=== PATIENT | male | born 1945 | race Two or more races ===

== ENCOUNTER 2019-12-23 08:06 | Day surgery (SDC) | payer MEDICARE, MEDICAID ==
--- NOTE | 2019-12-13 22:54 | Pre-Procedure Note/Attestation ---
Pre-Procedure Note/Attestation Complete Prior to Procedure Planned Procedure: right - Removal of cataract and placement of intraocular lens right eye Procedure Narrative: Removal of cataract and placement of intraocular lens right eye Indications for Procedure Pre-Operative Diagnosis: cataract, combined, right eye Attestation I attest that I discussed the nature of the procedure; its benefits; risks and complications; and alternatives (and the risks and benefits of such alternatives), prior to the procedure, with the patient (or the patient's legal claim service representative). I attest that, if there was a reasonable possibility of needing a blood tr ansfusion, the patient (or the patient's legal claim service representative) was given the [place] Department of [employer] Services standardized written summary, pursuant to the Christopher Cullen Blood Safety Act ([place] Health and Safety Code # 1645, as amended). I attest that I re-evaluated the patient just prior to the surgery and that there has been no change in the patient's H&P, except as documented below: Carson Bailey MD Dec 13, 2019 22:54
[2019-12-14] MEDS: Cyclopentolate 1% Opth Sol 2ml RIGHT EYE SCH ×3 (08:51→09:24)
[2019-12-14] MEDS: Tropicamide 1% Opth 15ml Soln RIGHT EYE SCH ×3 (08:51→09:23)
[2019-12-14] MEDS: Phenylephrine 10% Opth Soln 5ml RIGHT EYE SCH ×3 (08:52→09:24)
[2019-12-14] MEDS: Akten 3.5% 1ml Btl RIGHT EYE SCH ×3 (08:52→09:24)
[2019-12-14] MEDS: Vigamox Opth Soln 3ml RIGHT EYE SCH ×3 (08:52→09:24)
[2019-12-14] MEDS: Tobradex Opth Susp 2.5ml RIGHT EYE SCH ×3 (08:52→09:24)
--- NOTE | 2019-12-14 09:00 | NUR ---
Patient ate 3 burritos with jam with diet coke at [address] Quiñonez, anesthesia, made aware.
[2019-12-14 09:17] VITALS: BP 140/75
[2019-12-14 09:27] LABS: BASOPHILS % (AUTO) 1.7 % (0.0-2.0); EOSINOPHILS % (AUTO) 4.9 % (0.0-3.0); HEMATOCRIT 39.3 % (42.0-52.0); HEMOGLOBIN 13.7 G/DL (14.2-18.0); LYMPHOCYTES % (AUTO) 19.2 % (20.0-45.0); MEAN CORPUSCULAR VOLUME 85 FL (80-99); MONOCYTES % (AUTO) 7.8 % (1.0-10.0); NEUTROPHILS % (AUTO) 66.4 % (45.0-75.0); PLATELET COUNT 311 K/UL (150-450); RED BLOOD COUNT 4.61 M/UL (4.70-6.10); RED CELL DISTRIBUTION WIDTH 11.1 % (11.6-14.8); WHITE BLOOD COUNT 7.3 K/UL (4.8-10.8)
[2019-12-14 09:32] LABS: CALCIUM 9.7 MG/DL (8.5-10.1); CREATININE 1.5 MG/DL (0.55-1.30); POTASSIUM 4.1 MMOL/L (3.5-5.1)
--- NOTE | 2019-12-14 11:36 | NUR ---
surgery was cancelled by dr. tatum because the pt. ate this morning.pt will be rescheduled
--- NOTE | 2019-12-14 12:45 | Pre-op HX & Phy Repo 2 SIG ---
DATE OF ADMISSION: 12/14/2019 PRESURGICAL INTERNAL MEDICINE HISTORY AND PHYSICAL DATE OF EVALUATION: . REASON FOR EVALUATION: The patient is a 74-year-old male, who is going for elective surgery on the right eye. The patient was referred by Dr. Carson Bailey, windscreen fitter. The patient has nuclear sclerotic cataract, right eye. Please see Ophthalmology History and Physical by Dr. Carson Bailey. The patient was evaluated at [facility] outpatient surgery department. History was obtained from the patient and from his brother, Juan. PAST MEDICAL HISTORY: Remarkable for bipolar schizophrenia, type 2 diabetes mellitus. No respiratory problem, asthma, or bronchitis. No history of stroke or seizures. Denies history of myocardial infarction, chest pain, or palpitation. No high blood pressure. Denies history of renal insufficiency. There is a history of prostate cancer and had prostatectomy 10 years ago. No history of anemia. Denies history of GI bleeding or hepatitis. SURGICAL HISTORY: Left ankle fracture, radical prostatectomy for cancer. FAMILY HISTORY: Mother at the age of 84 from congestive heart failure. Father age of 82 from congestive heart failure. ALLERGIES: Not known. PRESENT MEDICATIONS: Include lithium carbonate 300 mg twice a day, Risperdal, metformin twice a day, lorazepam, and gemfibrozil for cholesterol. SOCIAL HISTORY: The patient smoked till 1983. No alcohol. No street drug use. PHYSICAL EXAMINATION: GENERAL: Alert, well-developed and well-nourished male, weight 194 pounds and 6 feet tall, no acute distress. VITAL SIGNS: Blood pressure 140/75, temperature 97.1, pulse 53 and regular, O2 saturation 99% on room air. SKIN: Few scratches on the right laboy. Skin is pale, warm, dry. LYMPHATICS: Lymph nodes not enlarged. HEENT: Head, normocephalic and atraumatic. Ears, clear. Eyes, full description by Dr. Carson Bailey. No dentures. Mouth, Mucous us clear. NECK: No jugular venous distention. Carotids artery +2. Trachea midline. CHEST: No deformity or asymmetry. LUNGS: Clear to auscultation and percussion. No rales or rhonchi. HEART: Sinus bradycardia. No murmur. No S3 or S4. ABDOMEN: Soft. No palpable mass. No rebound. EXTREMITIES: No varicose vein. No edema. GENITOURINARY: Prostatectomy for cancer. No CVA tenderness. NEUROLOGIC: No tremor. No nystagmus. DIAGNOSTIC AND LABORATORY DATA: ECG, sinus bradycardia with first-degree AV block, left axis deviation, right bundle-branch block. Inferior DC, old. The patient did not eat from 5:30 a.m. Laboratory, fast blood sugar 129. Rest of the laboratory pending. IMPRESSION: 1. Nuclear sclerotic cataract, right eye. 2. Atherosclerotic heart disease with sinus bradycardia, left axis deviation, right bundle-branch block, and history of DC old. 3. Diabetes mellitus type 2. 4. History of prostate cancer. PLAN: Cataract extraction, right eye with intraocular lens implant per Dr. Carson Bailey. CONCLUSION: The patient has multiple medical problems include EKG changes, vital signs stable. The patient is a diabetic on metformin, blood sugar controlled. The patient did not eat or drink from 5:30 a.m. evaluated by anesthesiologist. The patient's condition optimized for surgery. Carlos Wynne M.D. DR: SERENA JOB#: [id number] CC:
--- NOTE | 2019-12-20 17:21 | Cardiology Report ---
APPROVED REPORT EKG Measurement Heart [id number] <Conclusion> Sinus bradycardia with 1st degree AV block Left axis deviation Right bundle branch block Inferior infarct, age undetermined Abnormal ECG
[2019-12-23] VITALS (8 sets, daily range): BP systolic 120–142; BP diastolic 60–69
[~2019-12-23] VITALS: Ht 182.9 cm; Wt 89.8 kg
[~2019-12-23 08:06] MED LIST: Acetylcholine Injection (OR) ONE; Akten 3.5% 1ml Btl ONE; BSS 15ml BTL ONE; BSS 500ml btl ONE; Bupivacaine 0.75% 30ml vial INJ ONE; Cyclopentolate 1% Opth Sol 2ml ONE; EPINEPHrine 1mg/1ml Amp ONE; Fluorescein Strips ONE; GEMFIBROZIL600 MG ORAL; LITHIUM CARBON300 MG ORAL; Lidocaine 1% MPF 10mg/ml 5ml ONE; Lidocaine 2% MPF 5ml Vial INJ ONE; Lidocaine 4% Amp 5ml ONE; METFORMIN HCL500 M1 ORAL; Maxitrol Opth Oint 3.5gm ONE; Phenylephrine 10% Opth Soln 5ml ONE; Povidone-Iodine 5% opth solution ONE; Sodium Hyaluronate 10 mg/ml 0.85ml ONE; Tetracaine 0.5% Opth 4ml Soln ONE; Tobradex Opth Susp 2.5ml ONE; Tropicamide 1% Opth 15ml Soln ONE; Vigamox Opth Soln 3ml ONE; prednisoLONE acetate 1% Opth Susp 1ml ONE
[2019-12-23] MEDS: Tropicamide 1% Opth 15ml Soln RIGHT EYE SCH ×3 (08:54→09:14)
[2019-12-23] MEDS: Cyclopentolate 2% Opth Sol RIGHT EYE SCH ×3 (08:54→09:14)
[2019-12-23] MEDS: Phenylephrine 10% Opth Soln 5ml RIGHT EYE SCH ×3 (08:54→09:14)
[2019-12-23] MEDS: Akten 3.5% 1ml Btl RIGHT EYE SCH ×3 (08:54→09:14)
[2019-12-23] MEDS: Vigamox Opth Soln 3ml RIGHT EYE SCH ×3 (08:54→09:14)
[2019-12-23] MEDS: Tobradex Opth Susp 2.5ml RIGHT EYE SCH ×3 (08:54→09:14)
[2019-12-23] MEDS ORDERED: EPINEPHrine 1mg/1ml Amp ONE ×2 (09:21→12:35)
[2019-12-23] MEDS ORDERED: Lidocaine 1% MPF 10mg/ml 5ml ONE ×2 (09:21→09:47)
[2019-12-23] MEDS ORDERED: Lidocaine 4% Amp 5ml ONE (09:21)
[2019-12-23] MEDS ORDERED: prednisoLONE acetate 1% Opth Susp 1ml ONE (09:22)
[2019-12-23] MEDS ORDERED: timoloL maleate 0.5% Op Soln 2.5ml ONE (09:22)
[2019-12-23] MEDS ORDERED: Carbachol 0.01% Op Soln 1.5ml vial ONE (09:22)
[2019-12-23] MEDS ORDERED: Fluorescein Strips ONE (09:22)
[2019-12-23] MEDS ORDERED: Maxitrol Opth Oint 3.5gm ONE (09:22)
[2019-12-23] MEDS ORDERED: Povidone-Iodine 5% opth solution ONE (09:23)
[2019-12-23] MEDS ORDERED: BSS 500ml btl ONE ×2 (09:23→10:39)
[2019-12-23] MEDS ORDERED: BSS 15ml BTL ONE (09:23)
[2019-12-23] MEDS ORDERED: Acetylcholine Injection (OR) ONE (09:23)
[2019-12-23] MEDS ORDERED: Tetracaine 0.5% Opth 4ml Soln ONE (09:23)
[2019-12-23] MEDS ORDERED: Bupivacaine 0.75% 30ml vial INJ ONE (09:23)
[2019-12-23] MEDS ORDERED: Sodium Hyaluronate 10 mg/ml 0.85ml ONE ×2 (09:24→12:35)
--- NOTE | 2019-12-23 09:42 | Anethesia Preoperative Eval ---
Anesthesia Pre-op PMH/ROS General Date of Evaluation: Dec 23, 2019 Anesthesiologist: Vishal ASA Score: ASA 3 Mallampati Score Class I : Soft palate, uvula, fauces, pillars visible Class II: Soft palate, uvula, fauces visible Class III: Soft palate, base of uvula visible Class IV: Only hard plate visible Mallampati Classification: Class III Surgeon: Lynn Diagnosis: Right cataract Surgical Procedure: Right cataract extractin with IOL Anesthesia History: none Family History: no anesthesia problems Allergies: Coded Allergies: No Known Allergies (Unverified , 12/13/19) Medications: see eMAR Patient NPO?: Yes NPO Date: Dec 23, 2019 NPO Time: 00:00 Past Medical History Cardiovascular: Reports: HTN, CAD, SC; Denies: valve dz, arrhythmia, other Pulmonary: Denies: asthma, COPD, NONI, other Gastrointestinal/Genitourinary: Reports: other - prostate cancer,bph; Denies: GERD, CRI, ESRD Neurologic/Psychiatric: Reports: other - scizophreenia, bipolar; Denies: dementia, CVA, depression/anxiety, TIA Endocrine: Reports: DM; Denies: hypothyroidism, steroids, other HEENT: Reports: cataract (R), JAMUL (L), JAMUL (R); Denies: cataract (L), glaucoma, other Hematology/Immune: Reports: anemia; Denies: DVT, bleeding disorder, other Musculoskeletal/Integumentary: Denies: OA, RA, DJD, DDD, edema, other PSxH Narrative: TURP, left ankle orif Anesthesia Pre-op Phys. Exam Physician Exam Last Vital Signs Date Time Temp Pulse Resp B/P (MAP) Pulse Ox O2 Delivery O2 Flow Rate FiO2 12/23/19 08:47 97.5 56 18 125/67 100 Room Air Constitutional: NAD Cardiovascular: RRR Respiratory: CTA Airway Exam Mallampati Score: Class III MO: limited ROM: limited Anesthesia Pre-op A/P Labs Chemistry Test 12/23/19 09:02 POC Whole Blood Glucose 146 MG/DL (74-106) H Studies Pre-op Studies: EKG - SB, LAD, RBBB Risk Assessment & Plan Assessment: ASA III Plan: MAC Status Change Before Surgery: No Pre-Antibiotics Drug: Noemy Mcgee MD Dec 23, 2019 09:42
[2019-12-23] MEDS ORDERED: DiphenhydrAMINE 50mg/ml Inj IVP PRN (09:45)
[2019-12-23] MEDS ORDERED: Midazolam 2mg/2ml Inj IVP PRN (09:45)
[2019-12-23] MEDS ORDERED: LR 1000ml 1,000 ML IVLG SCH (09:45)
[2019-12-23] MEDS ORDERED: LORazepam Inj 2mg/ml 1ml IV PRN (09:45)
[2019-12-23] MEDS ORDERED: Midazolam 2mg/2ml Inj ONE (09:47)
[2019-12-23] MEDS ORDERED: fentaNYL 100 mcg/2 mL IV ONE (09:47)
[2019-12-23] MEDS ORDERED: Sterile Water Irrig 1000ml IRRIG ONE (10:00)
[2019-12-23] MEDS ORDERED: LR 1000ml ONE (10:00)
[2019-12-23] MEDS ORDERED: NS Irrig 1000ml ONE (10:00)
--- NOTE | 2019-12-23 11:05 | Discharge Instructions ---
Discharge Instructions Discharge Instructions Follow Up Orders Wear eye shield at all times except to place eye drops Continue preoperative eye drops Followup tomorrow in Dr Bailey's office For Congestive Heart Failure Reminder Report to your physician any weight gain of 5 pounds or more in one week. Carson Bailey MD Dec 23, 2019 11:05
--- NOTE | 2019-12-23 11:06 | Immediate Post-Op Evaluation ---
Immediate Post-Op Evalulation Immediate Post-Op Evalulation Procedure: Right cataract extraction with IOL Date of Evaluation: Dec 23, 2019 Time of Evaluation: 11:08 IV Fluids: 100 Blood Products: 0 Estimated Blood Loss: 0 Urinary Output: 0 Blood Pressure Systolic: 142 Blood Pressure Diastolic: 67 Pulse Rate: 58 Respiratory Rate: 16 O2 Sat by Pulse Oximetry: 98 Temperature (Fahrenheit): 97.4 Pain Score (1-10): 0 Nausea: No Vomiting: No Complications 00 Patient Status: awake, reacts, patent, none Hydration Status: adequate Drug: N/A Noemy Rodgers MD Dec 23, 2019 11:06
--- NOTE | 2019-12-23 11:07 | Pre-Procedure Note/Attestation ---
Pre-Procedure Note/Attestation Complete Prior to Procedure Planned Procedure: right - Removal of cataract and placement of intraocular lens, right eye Procedure Narrative: Removal of cataract and placement of intraocular lens, right eye Indications for Procedure Pre-Operative Diagnosis: cataract, combined, right eye Miosis right eye Attestation I attest that I discussed the nature of the procedure; its benefits; risks and complications; and alternatives (and the risks and benefits of such alternatives), prior to the procedure, with the patient (or the patient's legal patient relations representative). I attest that, if there was a reasonable possibility of needing a blood transfusion, the patient (or the patient's legal patient relations representative) was given the [place] Department of Health Services standardized written summary, pursuant to the Christopher Yolanda Blood Safety Act ([place] Health and Safety Code # 1645, as amended). I attest that I re-evaluated the patient just prior to the surgery and that there has been no change in the patient's H&P, except as documented below: Carson Bailey MD Dec 23, 2019 11:07
--- NOTE | 2019-12-23 11:08 | 48 Hour Post Anesthesia Eval ---
Post Anesthesia Evaluation Procedure: Right cataract extraction with IOL Date of Evaluation: Dec 23, 2019 Airway: patent Nausea: No Vomiting: No Pain Intensity: 0 Hydration Status: adequate Cardiopulmonary Status: at baseline Mental Status/LOC: patient returned to baseline Post-Anesthesia Complications: 0 Follow-up care needed: ready to discharge Noemy Rodgers MD Dec 23, 2019 11:08
--- NOTE | 2019-12-23 11:09 | Brief Operative Note ---
Immediate Post Operative Note Operative Note Pre-op Diagnosis: cataract, combined, right eye Miosis right eye Procedure: Phaco PC IOL, right eye Use of Malyugen ring (7.0mm) Use of vision blue for capsular staining Post-op Diagnosis: Dense, cataract, combined forms, right eye Miosis, right eye Surgeon: Carmen Bailey MD MS Fire Control Mechanic: none Anesthesiologist: Dr Rodgers Anesthesia: local, MAC Specimen: none Complications: none Fluids: see chart Estimated Blood Loss: minimal Implant(s) used?: Yes - Oleg ZCB00 22.5 Carson Bailey MD Dec 23, 2019 11:09
--- NOTE | 2019-12-23 12:15 | Operative Note - Dictated ---
DATE OF OPERATION: 12/23/2019 SURGEON: Carson Bailey MD. FISHING CAPTAIN SURGEON: None. ANESTHESIOLOGIST: Dr. Rodgers. ANESTHESIA: Local/standby/monitored anesthesia care. PREOPERATIVE DIAGNOSES: 1. Dense cataract, combined forms, right eye. 2. Miosis, right eye. PROCEDURES: 1. Phacoemulsification of cataract, right eye. 2. Placement of posterior chamber intraocular lens, right eye (model [id number], power 22.5). 3. Use of Malyugin ring (7.0 mm). 4. Use of VisionBlue for capsular staining, right eye. SPECIMENS: None. COMPLICATIONS: None. INDICATIONS FOR SURGERY: The patient has had the painless progressive decrease in visual acuity in the right eye secondary to cataract. The patient understands the risks of surgery including infection, bleeding, need for further surgery, loss of vision, no improvement in vision, loss of the eye, loss of life, glaucoma, and retinal detachment. He understands these risks and elects to proceed with surgery. FINDINGS: The patient had a very dense +4 nuclear sclerotic cataract with +4 cortical cataract and +3 posterior subcapsular cataract. In addition, he had miosis with the pupil only opening to approximately to 4 mm. OPERATIVE NOTE: After informed consent was obtained, the patient was brought into the operating room and placed in supine position. Cardiac and respiratory monitors were attached. A time-out was performed and all criteria were met and everyone in the room agreed. The right eye was then draped and prepped in a sterile manner for ocular surgery. A lid speculum was placed in the eye. A 1% lidocaine preservative-free was injected at the approximate 9 o'clock limbus. A conjunctiva peritomy from approximately 8:30 to 9:30 was made and dissected posteriorly. Hemostasis was maintained with bipolar cautery. A 2.8 mm limbal incision was made centered at approximately 9 o'clock and dissected anteriorly. A paracentesis was made at 12 o'clock and Shugarcaine was injected into the anterior chamber followed by an air bubble. VisionBlue was injected into the anterior chamber and the anterior capsule was stained. The VisionBlue was irrigated from the anterior chamber and Healon was injected into the anterior chamber. The anterior chamber was then entered using a 2.8 mm keratome through the limbal incision. Healon was injected into the anterior chamber and the Malyugin ring was used to hook on to 4 points of the pupillary margin. An anterior capsulorrhexis was then performed. Hydrodissection and hydrodelineation of the lens was then performed. The lens was then phacoemulsified using divide and conquer four-quadrant technique. The lens was very dense and had to go into a power mode 3 as well as two bottles of BSS. The four quadrants were then removed followed by the epinucleus. Inspiration and aspiration of the cortical material was then performed. Healon was injected into the anterior chamber and capsular bag. The lens was taken from its package, placed into the cartridge and the tip of the cartridge was placed through the limbal incision. The lens was injected into the capsular bag and centered nicely with a Sinskey hook. The Malyugin ring was then removed. Healon was then aspirated from the anterior chamber and capsular bag. The lens was examined and both haptics and the optic were in the capsular bag along the 9 o'clock to 3 o'clock position. This was visually observed. One 10-0 nylon interrupted suture was then placed through the limbal incision. The knot was rotated and buried. The wounds were hydrated, closed also and they were checked and found to be watertight. Conjunctiva was then closed with forceps cautery. The lid speculum was removed from the eye and the lens was again checked and the optic and both haptics were in the capsular bag centered along the 9 o'clock to 3 o'clock position. The drapes were removed from the eye and drops of TobraDex, moxifloxacin, and Pred Forte were applied to the eye followed by Maxitrol ointment and a shield. The patient tolerated the procedure well and left the operating room awake, alert, and in stable condition. Carson Bailey M.D. DR: VELIA JOB#: [id number] CC:
== END 2019-12-23 12:15 | disposition home or self-care (01) ==
LOC: SUR 08:06
DX: H25.11 Age-related nuclear cataract, right eye (principal); H57.03 Miosis; H25.011 Cortical age-related cataract, right eye; H25.041 Posterior subcapsular polar age-related cataract, right eye; Z90.79 Acquired absence of other genital organ(s); Z79.899 Other long term (current) drug therapy; F31.9 Bipolar disorder, unspecified; F20.9 Schizophrenia, unspecified; E11.9 Type 2 diabetes mellitus without complications; R00.1 Bradycardia, unspecified; I44.0 Atrioventricular block, first degree; I25.2 Old myocardial infarction; Z85.46 Personal history of malignant neoplasm of prostate; Z79.84 Long term (current) use of oral hypoglycemic drugs; I45.10 Unspecified right bundle-branch block; I11.9 Hypertensive heart disease without heart failure; I25.10 Atherosclerotic heart disease of native coronary artery without angina pectoris; D64.9 Anemia, unspecified
CPT/HCPCS: 36415; 66982; 80048; 82962; 85025; 93005; 94003; J0171; J1100; J2250; J3010; J3490; J7120; U0002; V2632; 94150